=== PATIENT | female | born 1950 ===

== ENCOUNTER 2024-02-07 05:54 | Day surgery (SDC) | payer OTHER ==
[~2024-02-07 05:54] MED LIST: COZAAR25 MG; COZAAR50 MG PO; CRESTOR40 MG PO; SYMBICORT 16010.2 GM; XYZAL5 MG
[2024-02-07] MEDS ORDERED: CEFAZOLIN SODIUM 1,000 MG VIAL IV ONE (14:45)
== END 2024-02-07 15:25 | disposition home or self-care (01) ==
LOC: CIR.AMB 05:54
PROVIDERS: ATTEND Surgery Surgery of the Hand
DX: M65.841 Other synovitis and tenosynovitis, right hand (principal); Z88.6 Allergy status to analgesic agent; J45.909 Unspecified asthma, uncomplicated; I10 Essential (primary) hypertension